=== PATIENT | female | born 1945 | race Hispanic/Latino ===

== ENCOUNTER 2021-09-05 15:26 | Outpatient (CLI) | payer MEDICARE ==
[2021-09-06 00:31] LABS: SARS-CoV-2 PCR by NAA Not Detected (NotDetected)
== END 2021-09-05 15:27 | disposition home or self-care (01) ==
LOC: CSHLAB 15:26
PROVIDERS: ATTEND Podiatrist Foot & Ankle Surgery
DX: Z20.822 Contact with and (suspected) exposure to COVID-19 (principal); M20.42 Other hammer toe(s) (acquired), left foot
CPT/HCPCS: U0003; U0005

== ENCOUNTER 2021-09-07 09:56 | Day surgery (SDC) | payer MEDICARE ==
[2021-09-05 13:25] VITALS: BMI 27.6
[2021-09-07] MEDS ORDERED: Lidocaine 1% MPF 2 ML VIAL ONE (10:18)
[2021-09-07] MEDS ORDERED: Bupivacaine PF 0.5% 30 ML VIAL ONE (10:22)
[2021-09-07 10:59] LABS: Potassium 5.2 mmol/L (3.5-5.1)
[2021-09-07] MEDS ORDERED: Lidocaine 1% PF 5 ML VIAL ONE (11:49)
[2021-09-07] MEDS ORDERED: PROPOFOL 20 ML ONE (11:49)
[2021-09-07] MEDS ORDERED: ceFAZolin 2 GM/Dextrose 50 ML IVPB ONE (11:50)
[2021-09-07] MEDS ORDERED: Fentanyl 100 MCG/2 ML VIAL ONE (11:56)
[2021-09-07] MEDS ORDERED: Ondansetron PF 4 MG/2 ML Vial ONE (12:09)
[2021-09-07] MEDS ORDERED: Metoclopramide HCl 10 MG/2 ML VIAL ONE (12:09)
[2021-09-07] MEDS ORDERED: ePHEDrine Sulfate 50 MG/10 ML VIAL ONE (12:26)
== END 2021-09-07 13:50 | disposition home or self-care (01) ==
LOC: CSHSDC 09:56
PROVIDERS: ATTEND Podiatrist Foot & Ankle Surgery
DX: M20.41 Other hammer toe(s) (acquired), right foot (principal); L97.519 Non-pressure chronic ulcer of other part of right foot with unspecified severity; I10 Essential (primary) hypertension; Z95.2 Presence of prosthetic heart valve; Z79.899 Other long term (current) drug therapy; Z79.84 Long term (current) use of oral hypoglycemic drugs; E11.9 Type 2 diabetes mellitus without complications; E55.9 Vitamin D deficiency, unspecified; E03.9 Hypothyroidism, unspecified; K21.9 Gastro-esophageal reflux disease without esophagitis; F32.A Depression, unspecified; I25.10 Atherosclerotic heart disease of native coronary artery without angina pectoris; E78.5 Hyperlipidemia, unspecified
CPT/HCPCS: 36416; 84132; J0690; J2405; J2704; J2765; J3010; S0020

== ENCOUNTER 2024-02-12 13:53 | Outpatient (CLI) | payer MEDICARE | END 2024-02-12 13:54 | disposition home or self-care (01) | LOC: CSHMAMMO 13:53 | PROVIDERS: ATTEND Family Medicine | DX: M81.0 Age-related osteoporosis without current pathological fracture (principal); M85.851 Other specified disorders of bone density and structure, right thigh; M85.852 Other specified disorders of bone density and structure, left thigh | CPT/HCPCS: 77080 ==